=== PATIENT | male | born 1975 | race Caucasian/White ===

== ENCOUNTER 2018-05-11 05:24 | Day surgery (SDC) | payer OTHER ==
[2018-05-11] MEDS ORDERED: PROTONIX40 MG PO (12:10)
[2018-05-11] MEDS ORDERED: PERCOCET 5-3251 EACH PO (12:10)
[2018-05-11] MEDS ORDERED: ZOFRAN ODT4 MG PO (12:11)
[2018-05-11] MEDS ORDERED: KETO10TA2 PO (12:12)
== END 2018-05-11 17:20 | disposition home or self-care (01) ==
LOC: CIR.AMB 05:24
DX: K80.10 Calculus of gallbladder with chronic cholecystitis without obstruction (principal)

== ENCOUNTER 2020-07-08 10:17 | Day surgery (SDC) | payer OTHER ==
[~2020-07-08 10:17] MED LIST: KETO10TA2 PO; PERCOCET 5-3251 EACH PO; PROTONIX40 MG PO; ZOFRAN ODT4 MG PO
== END 2020-07-08 17:00 | disposition home or self-care (01) ==
LOC: AMB-ENDOS 10:17
PROVIDERS: ATTEND Surgery
DX: K62.89 Other specified diseases of anus and rectum (principal); Z20.822 Contact with and (suspected) exposure to COVID-19

== ENCOUNTER 2024-08-23 13:40 | Outpatient (CLI) | payer OTHER | END 2024-08-23 13:57 | disposition home or self-care (01) | LOC: MRI 13:40 | DX: M25.461 Effusion, right knee (principal); M17.11 Unilateral primary osteoarthritis, right knee; M17.12 Unilateral primary osteoarthritis, left knee | CPT/HCPCS: 73721 ==